=== PATIENT | female | born 1980 | race Caucasian/White ===

== ENCOUNTER → 2022-02-19 | Outpatient (CLI) | payer OTHER ==
[2022-02-21 15:06] LABS: Aspergillus fumagatus IgE <0.10 kU/L; Birch IgE <0.10 kU/L; Cladosporian herbarum IgE <0.10 kU/L; Dermato. farinae IgE 0.26 kU/L; Dog Dander IgE 1.46 kU/L; Elm IgE <0.10 kU/L; Maple (Box Elder) IgE <0.10 kU/L; Oak IgE <0.10 kU/L; Ragweed,Common IgE 1.79 kU/L
[2022-02-22 15:18] LABS: Bermuda Grass IgE <0.10 kU/L (<0.10); Meadow Fescue IgE 1.18 kU/L (<0.10); Meadow Fescue IgE Class CLASS 2; Meadow Grs (KY blue) IgE 0.97 kU/L (<0.10); Meadow Grs (KY blue) IgE Class CLASS 2; Pecan IgE <0.10 kU/L (<0.10); Pecan IgE Class CLASS 0
[2022-02-22 15:19] LABS: Alt. alternata IgE Class CLASS 0/1; Alternaria alternata IgE 0.14 kU/L (<0.10); Penicillium notatum IgE Class CLASS 0; Timothy Grass IgE 0.99 kU/L (<0.10); Timothy Grass IgE Class CLASS 2
[2022-02-22 15:20] LABS: Beech IgE <0.10 kU/L (<0.10); Beech IgE Class CLASS 0; Cottonwood IgE <0.10 kU/L (<0.10); Goldenrod IgE <0.10 kU/L (<0.10); Goldenrod IgE Class CLASS 0; Lamb's Quarter IgE <0.10 kU/L (<0.10); Lamb's Quarter IgE Class CLASS 0; Sycamore(Mpl.Lf) IgE <0.10 kU/L (<0.10); Sycamore(Mpl.Lf) IgE Class CLASS 0; Willow Tree IgE <0.10 kU/L (<0.10); Willow Tree IgE Class CLASS 0
[2022-02-22 15:21] LABS: English Plantain IgE Class CLASS 0; Ragweed, Giant IgE 0.71 kU/L (<0.10); Ragweed, Giant IgE Class CLASS 2; Sheep Sorrel IgE <0.10 kU/L (<0.10); Sheep Sorrel IgE Class CLASS 0
== END | disposition home or self-care (01) ==
LOC: LABWHC1 12:26
PROVIDERS: ATTEND Internal Medicine
DX: J31.0 Chronic rhinitis (principal)
CPT/HCPCS: 36415; 86003